=== PATIENT | female | born 1965 | race Caucasian/White ===

== ENCOUNTER 2018-08-20 09:05 | Observation (INO) ==
[2018-08-20] MEDS ORDERED: ONDANSETRON 4 MG/2 ML VIAL ONE (09:44)
[2018-08-20] MEDS ORDERED: ONDANSETRON 4 MG/2 ML VIAL IV STA (09:47)
[2018-08-20 09:48] LABS: Basophils # 0.1 10*3/uL (0.0-0.2); Basophils % 0.6 % (0.0-0.8); Eosinophils # 0.1 10*3/uL (0.0-0.87); Eosinophils % 0.9 % (0.00-10.9); Hematocrit 39.1 VOL% (35.7-47.0); Immature Granulocytes % 0.4 %; Immature Granulocytes Absolute 0.03 #; Lymphocytes # 2.3 10*3/uL (1.4-4.0); Lymphocytes % 26.9 % (21.3-54.2); Mean Corpuscular HGB Conc 33.2 GM/DL (32-36); Mean Corpuscular Hemoglobin 30 PG (27-34); Mean Corpuscular Volume 90.7 FL (87-102); Mean Platelet Volume 9.5 FL (9.6-12.0); Monocytes # 0.6 10*3/uL (0.11-0.8); Monocytes % 6.5 % (1.7-12.7); Neutrophils # 5.5 10*3/uL (1.4-7.4); Neutrophils % 64.7 % (38.7-73.9); Platelet Count 245 T/CUMM (130-400); Red Blood Count 4.31 MC/CUMM (3.8-5.5); Red Cell Distribution Width 12.5 % (9.3-17.3); White Blood Count 8.6 T/CUMM (4-12)
[2018-08-20 10:13] LABS: ABG Base Excess -1.9 MMOL/L (-2.5-2.5); ABG HCO3 22.9 MMOL/L (20-26); ABG Oxygen Saturation 99.3 % (95-100); ABG PCO2 25.4 MM HG (35-48); ABG PH 7.501 (7.35-7.45); ABG TCO2 17.2 MMOL/L (23-27)
[2018-08-20 10:17] LABS: Alanine Aminotransferase 18 U/L (13-56); Albumin 3.6 G/DL (3.4-5.0); Alkaline Phosphatase 76 U/L (45-117); Aspartate Amino Transferase 10 U/L (0-37); Bilirubin,Total < 0.39 MG/DL (0.2-1.0); Blood Urea Nitrogen 16 MG/DL (7-18); Calcium 8.4 MG/DL (8.5-10.1); Glucose 89 MG/DL (74-106); Osmolality,Calculated 287.7 MOS/KG (273-304); Potassium 3.3 MMOL/L (3.5-5.1); Sodium 145 MMOL/L (136-145); Total Protein 6.5 G/DL (6.4-8.3)
[2018-08-20 10:28] LABS: Barbiturates Screen,Urine Negative (Negative); Benzodiazepines Screen,Urine Negative (Negative); Cannabinoid Screen,Urine Negative (Negative); Opiate Screen,Urine Negative (Negative); Phencyclidine Screen,Urine Negative (Negative)
[2018-08-20] MEDS ORDERED: ONDANSETRON 4 MG/2 ML VIAL IV PRN (11:55)
[2018-08-20] MEDS ORDERED: diphenhydrAMINE CAP 25 MG CAPSULE PO PRN (11:55)
[2018-08-20] MEDS ORDERED: ACETAMINOPHEN 325 MG TABLET PO PRN (11:55)
[2018-08-20] MEDS ORDERED: DOCUSATE SODIUM 100 MG CAPSULE PO PRN (11:55)
[2018-08-20] MEDS: SODIUM CHLORIDE 0.9% 1,000 ML IV SCH (12:25)
[2018-08-20] MEDS: PANTOPRAZOLE 40 MG TABLET PO SCH (12:26)
[2018-08-20] MEDS ORDERED: POTASSIUM CHLORIDE 20 MEQ TABLET PO ONE (14:30)
[2018-08-20] MEDS ORDERED: ACETAMINOPHEN 500 MG TABLET PO PRN (18:51)
[2018-08-20] MEDS ORDERED: ENOXAPARIN 40 MG/0.4 ML SYRINGE SUBCUT SCH (21:00)
[2018-08-20] MEDS ORDERED: OXcarbazepine 300 MG TABLET PO SCH (21:00)
[2018-08-20] MEDS ORDERED: ESTRADIOL 2 MG TABLET PO SCH (21:00)
[2018-08-20] MEDS ORDERED: GABAPENTIN 300 MG CAPSULE PO SCH (21:00)
[2018-08-20] MEDS ORDERED: LINACLOTIDE 145 MCG CAPSULE PO SCH (23:00)
[2018-08-20] MEDS ORDERED: TOPIRAMATE 100 MG TABLET PO SCH (23:00)
[2018-08-21] MEDS: SODIUM CHLORIDE 0.9% 1,000 ML IV SCH (02:10)
[2018-08-21 05:05] LABS: Basophils # 0.1 10*3/uL (0.0-0.2); Basophils % 0.7 % (0.0-0.8); Eosinophils # 0.2 10*3/uL (0.0-0.87); Eosinophils % 1.8 % (0.00-10.9); Hematocrit 35.4 VOL% (35.7-47.0); Hemoglobin 11.6 GM/DL (12.0-16.0); Immature Granulocytes % 0.3 %; Immature Granulocytes Absolute 0.03 #; Lymphocytes # 3.1 10*3/uL (1.4-4.0); Lymphocytes % 31.7 % (21.3-54.2); Mean Corpuscular HGB Conc 32.8 GM/DL (32-36); Mean Corpuscular Hemoglobin 30 PG (27-34); Mean Corpuscular Volume 91.9 FL (87-102); Mean Platelet Volume 10.1 FL (9.6-12.0); Monocytes # 0.5 10*3/uL (0.11-0.8); Monocytes % 5.1 % (1.7-12.7); Neutrophils # 5.8 10*3/uL (1.4-7.4); Neutrophils % 60.4 % (38.7-73.9); Platelet Count 215 T/CUMM (130-400); Red Blood Count 3.85 MC/CUMM (3.8-5.5); Red Cell Distribution Width 12.7 % (9.3-17.3); White Blood Count 9.6 T/CUMM (4-12)
[2018-08-21 05:27] LABS: Calcium 7.7 MG/DL (8.5-10.1); Potassium 3.7 MMOL/L (3.5-5.1); Thyroid Stimulating Hormone 3.9 uIU/ml (0.358-3.74)
[2018-08-21] MEDS ORDERED: LINACLOTIDE 145 MCG CAPSULE PO SCH (09:00)
[2018-08-21] MEDS ORDERED: KETOROLAC 30 MG/1 ML VIAL IV ONE (09:30)
[2018-08-21] MEDS ORDERED: PROMETHAZINE 25 MG/1 ML VIAL IM ONE (09:30)
[2018-08-21] MEDS ORDERED: oxyCODONE/ACETAMINOPHEN 5-325 MG TABLET PO ONE (09:30)
[2018-08-21] MEDS: PANTOPRAZOLE 40 MG TABLET PO SCH (09:45)
[2018-08-21] MEDS: GABAPENTIN 100 MG CAPSULE PO SCH ×2 (09:45→13:27)
[2018-08-21] MEDS ORDERED: OXcarbazepine 300 MG TABLET PO SCH ×2 (12:00→21:00)
[2018-08-21] MEDS ORDERED: NITROGLYCERIN SL 0.4 MG TABLET SL ONE (12:07)
[2018-08-21] MEDS ORDERED: ASPIRIN CHEW 81 MG TABLET PO ONE ×2 (12:07→12:10)
[2018-08-21] MEDS ORDERED: ALUM/MAG/SIMETH/LIDO VISC 1:1 30 ML BOTTLE PO ONE ×2 (12:10→12:13)
[2018-08-21 13:39] VITALS: BP 124/58
[2018-08-21] MEDS ORDERED: TOPIRAMATE 100 MG TABLET PO SCH (21:00)
== END 2018-08-21 16:01 | disposition home or self-care (01) ==
LOC: N.EDINP 09:05 → N.ED 09:05 → N.EDINP 13:02 → N.2W 13:36 → N.2E 13:58
PROVIDERS: ADMIT Internal Medicine; ATTEND Internal Medicine